=== PATIENT | female | born 1955 | race Caucasian/White ===

== ENCOUNTER 2017-02-23 09:28 | Emergency (ER) | payer MEDICARE ==
[2017-02-23 09:58] VITALS: BP 132/79
--- NOTE | 2017-02-23 10:29 | UC ---
Knee Pain HPI - HPI Summary HPI Summary: 61 YO female with right knee pain causing a limp x 4-5 days knee stephania at times no falls using a cane - History of Current Complaint Chief Complaint: UCLowerExtremity Stated Complaint: KNEE INJURY Time Seen by Provider: 02/23/17 09:50 Hx Obtained From: Patient Onset/Duration: Gradual Onset, Lasting Days Severity Initially: Moderate Severity Currently: Moderate Pain Intensity: 4 Pain Scale Used: 0-10 Numeric Character: Aching, Spasmodic Aggravating Factor(s): Weight Bearing, Prolonged Standing Alleviating Factor(s): Rest Associated Signs And Symptoms: Positive: Negative Able to Bear Weight: Yes - Allergies/Home Medications Allergies/Adverse Reactions: Allergies Allergy/AdvReac Type Severity Reaction Status Date / Time Fish Oil Allergy Nausea Verified 02/23/17 09:34 Home Medications: Home Medications Hydrocodone-Acetaminophen [[place] 5-325 mg] mg PO PRN 02/23/17 [History] PMH/Surg Hx/FS Hx/Imm Hx Previously Healthy: Yes Psychological History: Other Other Psychological History: unsure of her pyschiatric dx Cancer History: Breast Cancer - Surgical History Surgical History: Yes Surgery Procedure, Year, and Place: LEFT BREAST LUMPECTOMY - Family History Known Family History: Positive: Other - strong hx ca Negative: Cardiac Disease, Hypertension, Diabetes - Social History Alcohol Use: Rare Alcohol Amount: beer Substance Use Type: None Substance Use Comment - Amount & Last Used: crack, Smoking Status (MU): Heavy Every Day Tobacco Smoker Type: Cigarettes Amount Used/How Often: 1.5+ppd - Immunization History Most Recent Influenza Vaccination: spring Most Recent Tetanus Shot: unknown Most Recent Pneumonia Vaccination: never Review of Systems Constitutional: Negative Skin: Negative Eyes: Negative ENT: Negative Respiratory: Negative Cardiovascular: Negative Gastrointestinal: Negative Genitourinary: Negative Motor: Negative Neurovascular: Negative Musculoskeletal: Arthralgia Neurological: Negative Psychological: Negative All Other Systems Reviewed And Are Negative: Yes Physical Exam Triage Information Reviewed: Yes Appearance: Well-Appearing, No Pain Distress, Well-Nourished Vital Signs: Initial Vital Signs Temp 96.4 F 02/23/17 09:40 Pulse 95 02/23/17 09:40 Resp 22 02/23/17 09:40 BP 132/79 02/23/17 09:40 Pulse Ox 97 08/14/17 09:40 Vital Signs Reviewed: Yes Eyes: Positive: Conjunctiva Clear ENT: Positive: Hearing grossly normal, Pharynx normal, Pharyngeal erythema. Negative: Nasal congestion, Nasal drainage, Trismus, Muffled/hoarse voice Neck: Positive: Supple, Nontender Respiratory: Positive: Lungs clear, Normal breath sounds, No respiratory distress, No accessory muscle use Cardiovascular: Positive: RRR, No Murmur, Pulses Normal Musculoskeletal: Positive: Strength Intact, ROM Intact, No Edema, Other: - tender right lateral knee/no effusion/antalgic gait Neurological: Positive: Alert Psychological Exam: Normal Skin Exam: Normal Knee Pain Course/Dx - Differential Dx/Diagnosis Provider Diagnoses: right knee pain with DJD. ? menical tear Discharge - Discharge Plan Condition: Stable Disposition: HOME Prescriptions: Meloxicam [Mobic] 7.5 - 15 mg PO DAILY #30 tab Patient Education Materials: Knee Pain (ED) Referrals: Jamie Echevarria MD [Primary Care Provider] - As Soon As Possible Additional Instructions: wear knee immobilizer while wt bearing
--- NOTE | 2017-02-23 10:35 | RAD ---
HISTORY: Right knee pain COMPARISONS: None VIEWS: 4, Frontal, lateral, axial, and oblique views of the right knee FINDINGS: BONE DENSITY: Normal. BONES: There is no displaced fracture. There are superior patellar enthesophytes. JOINTS: There is mild to moderate tricompartmental osteoarthritis. ALIGNMENT: There is no dislocation. SOFT TISSUES: Unremarkable. OTHER FINDINGS: None. IMPRESSION: OSTEOARTHRITIS. NO ACUTE OSSEOUS INJURY. IF SYMPTOMS PERSIST, RECOMMEND REPEAT IMAGING.
== END 2017-02-23 10:53 | disposition home or self-care (01) ==
LOC: UCEAST 09:28
DX: M17.11 Unilateral primary osteoarthritis, right knee (principal); M25.561 Pain in right knee; Z85.3 Personal history of malignant neoplasm of breast; F17.210 Nicotine dependence, cigarettes, uncomplicated
CPT/HCPCS: 99213; G0463

== ENCOUNTER 2023-11-07 11:05 | Observation (INO) ==
[2023-11-07] MEDS: NS 0.9% 1000 ml BAG 1,000 ML IV ONE (13:09)
[2023-11-07] MEDS: Vancomycin 1,000 MG in NS 0.9% 250 ml 250 ML IVPB ONE (13:18)
[2023-11-07] MEDS: Piperacillin/Tazobac 3.375 BAG 3.375 GM/100 ML BAG IV ONE (13:18)
[2023-11-07 13:37] LABS: Albumin 3.7 g/dL (3.2-5.2); Albumin/Globulin Ratio 1.4 (1-3); C Reactive Protein 54.38 mg/L (<8.01); Calcium 9.3 mg/dL (8.6-10.3); Creatinine, Serum 0.69 mg/dL (0.51-0.95); Globulin 2.6 g/dL (2-4); Potassium 3.9 mmol/L (3.5-5.0); Total Bilirubin 0.4 mg/dL (0.2-1.0); Total Protein 6.3 g/dL (6.4-8.9); eGFR CKD-EPI 95.7 (>60)
[2023-11-07] MEDS: Nicotine GUM 4MG FRUIT FLAVOR PO PRN (13:46)
[2023-11-07 13:49] LABS: ABS Eosinophils 0.2 10^3/uL (0.0-0.5); ABS Lymphocytes 1.3 10^3/uL (1.0-4.8); ABS Monocytes 0.6 10^3/uL (0.0-0.9); ABS Neutrophils 4.7 10^3/uL (1.5-7.6); ABS Nucleated RBC 0.01 10^3/ul; Eosinophil % 2.8 %; Hematocrit 41.7 % (35-45); Lymphocyte % 19.2 %; Mean Corpuscular Hemoglobin 30.2 pg (27-33); Mean Corpuscular Hgb Conc 33.5 g/dL (31-36); Mean Corpuscular Volume 90.2 fL (80-97); Mean Platelet Volume 6.7 fL (7.5-11.2); Nucleated Red Blood Cells % 0.1 %/100WBC (0.0-0.8); Platelet Count 270 10^3/uL (150-450); Red Blood Count 4.63 10^6/uL (3.63-4.92); Red Cell Distribution Width 14.5 % (12-17); White Blood Count 6.9 10^3/uL (3.8-11.8)
[2023-11-07] MEDS: Iohexol 300 (CONTRAST) 10 ML SDV IV ONE (14:21)
[2023-11-07] MEDS ORDERED: Vancomycin per Pharmacy 1 EA NOTE FOLLOW UP SCH (19:00)
[2023-11-07] MEDS: Nicotine PATCH 21 MG/24 HR PATCH TRANSDERM SCH (22:56)
[2023-11-07] MEDS: Vancomycin 1,250 MG in NS 0.9% 250 ml 250 ML IVPB SCH (22:56)
[2023-11-08] MEDS: Morphine 2 MG/ML SYRINGE IV ONE (07:56)
[2023-11-08] MEDS ORDERED: Morphine 2 MG/ML SYRINGE IV PRN (14:17)
[2023-11-09 05:59] LABS: ABS Eosinophils 0.2 10^3/uL (0.0-0.5); ABS Lymphocytes 1.8 10^3/uL (1.0-4.8); ABS Monocytes 0.6 10^3/uL (0.0-0.9); ABS Neutrophils 4.3 10^3/uL (1.5-7.6); ABS Nucleated RBC 0.01 10^3/ul; Hemoglobin 13.7 g/dL (11.5-14.3); Lymphocyte % 25.5 %; Mean Corpuscular Hemoglobin 30.8 pg (27-33); Mean Corpuscular Hgb Conc 34.3 g/dL (31-36); Mean Corpuscular Volume 89.8 fL (80-97); Mean Platelet Volume 6.6 fL (7.5-11.2); Nucleated Red Blood Cells % 0.2 %/100WBC (0.0-0.8); Platelet Count 299 10^3/uL (150-450); Red Blood Count 4.46 10^6/uL (3.63-4.92); Red Cell Distribution Width 14.4 % (12-17)
[2023-11-09 06:12] LABS: Creatinine, Serum 0.62 mg/dL (0.51-0.95); Potassium 4.4 mmol/L (3.5-5.0); eGFR CKD-EPI 98.2 (>60)
[2023-11-09] MEDS ORDERED: Vancomycin Trough Check NOTE FOLLOW UP ONE (09:30)
[2023-11-09 09:33] VITALS: BP 134/74
[2023-11-09] MEDS ORDERED: Vancomycin 1,250 MG in NS 0.9% 250 ml 250 ML IVPB SCH (11:30)
== END 2023-11-09 13:00 | disposition home health service (06) ==
LOC: EDHOLD 11:05 → ED 11:05 → SUATTDRO 17:29 → MED 19:53
PROVIDERS: ADMIT Internal Medicine; ATTEND Internal Medicine